=== PATIENT | male | born 1990 | race Caucasian/White ===

== ENCOUNTER 2024-09-01 08:50 | Outpatient (CLI) | payer BC, SELFPAY ==
--- NOTE | 2024-09-01 09:27 | DI.RAD_ITS ---
Exam(s) XR LUMBAR SPINE COMPLETE EXAM: XR LUMBAR SPINE COMPLETE CLINICAL HISTORY: Acute LBP with sciatica, M54.40-lumbago with sciatica, unspecified. TECHNIQUE: 2D digital imaging was performed. Five views. COMPARISON: No exams were available for comparison FINDINGS: Exam is somewhat limited by overlying bowel gas. BONES: No fracture or destructive lesion. Vertebral body heights are maintained. No facet hypertro phy identified . DISKS: Intervertebral disc spaces are maintained. ALIGNMENT: Lumbar spinal alignment is within normal limits. SOFT TISSUE: Right lower quadrant surgical clip. IMPRESSION: Unremarkable radiographs of the lumbar spine. DATA REPOSITORY: RADIATION DOSE DELIVERED:
== END 2024-09-01 09:10 ==
LOC: DI 09:00
PROVIDERS: PCP Nurse Practitioner Family; Visit Provider Nurse Practitioner Family
DX: M54.42 Lumbago with sciatica, left side (principal)
CPT/HCPCS: 72110